=== PATIENT | male | born 1970 | race African-American/Black ===

== ENCOUNTER 2016-04-02 18:22 | Emergency (ER) | payer OTHER ==
[2016-04-02 18:51] VITALS: TEMP 97.7; BMI 20.3
[2016-04-02] MEDS ORDERED: FOLIC ACID INJECTION - 1 MG, THIAMINE HCL 100 MG, MULTIVIT INJECTION ADULT 10 ML in SOD... IVPB ONE (19:09)
--- NOTE | 2016-04-02 19:14 | PDOC ---
[id number] is a 46 year old male with a significant past medical history of alcohol and cannabis abuse, asthma, hypertension, pancytopenia, who presents to the emergency department for alcohol intoxication. The patient presented at [address] [place] [address] for alcohol detox. The patient was intoxicated and was noted to have fallen in the waiting room. Patient was alert and appeared intoxicated patient sent to ER. He denies chest pain, shortness of breath, headache and dizziness. He denies fever, chills, nausea, vomit, diarrhea and constipation. He denies dysuria, frequency, urgency and hematuria. Allergies: Penicillins PCP - N/A <Trinidad Little - Last Filed: 04/02/16 19:22> - General History Source: Patient, Old Records Exam Limitations: Intoxication <Link Calhoun - Last Filed: 04/08/16 09:23> - General Chief Complaint: Alcohol intoxication Stated Complaint: Alcohol intoxication Time Seen by Provider: 04/02/16 18:34 Past History <Trinidad Little - Last Filed: 04/02/16 19:22> - Past Medical History Anemia: No Asthma: No Cancer: No Cardiac Disorders: No CVA: No COPD: No CHF: No Dementia: No Diabetes: No GI Disorders: No Disorders: No HTN: Yes (NO MEDS,non compliance) Hypercholesterolemia: No Kidney Stones: No Liver Disease: No Suicide Attempt (Hx): No Seizures: Yes (12/01/2013 AND 12/07/13,08/24/14) Thyroid Disease: No - Surgical History Abdominal Surgery: No Appendectomy: No Cardiac Surgery: No Cholecystectomy: No Lung Surgery: No Neurologic Surgery: Yes Orthopedic Surgery: Yes (JAW SX WITH PLATES IN PLACE IN 1999) - Reproductive History Testicular Surgery: No - Psycho/Social/Smoking Cessation Hx Anxiety: No Suicidal Ideation: No Smoking History: Current every day smoker Have you smoked in the past 12 months: Yes Number of Cigarettes Smoked Daily: 5 Cigars Per Day: 0 Information on smoking cessation initiated: No 'Breaking Loose' booklet given: 04/02/16 Hx Alcohol Use: Yes Drug/Substance Use Hx: No Substance Use Type: Alcohol Hx Substance Use Treatment: Yes (12/11) <Link Calhoun - Last Filed: 04/08/16 09:23> - Past Medical History Allergies/Adverse Reactions: Allergies Allergy/AdvReac Type Severity Reaction Status Date / Time Penicillins Allergy Severe Difficulty Verified 08/24/14 22:10 Breathing Home Medications: Ambulatory Orders Amlodipine Besylate [Norvasc -] 5 mg PO DAILY #30 tablet 08/27/14 Ferrous Sulfate [Feosol] 325 mg PO TIDCM #90 ud 08/27/14 Hydrochlorothiazide [Hctz -] 25 mg PO DAILY #30 tablet 08/27/14 Levetiracetam [Keppra -] 500 mg PO BID #60 tablet 08/27/14 Lisinopril [Prinivil] 20 mg PO BID #60 tablet 08/27/14 Potassium Chloride [K-Dur -] 40 meq PO DAILY #7 tablet.er 08/27/14 Albuterol Sulfate Inhaler - [Ventolin Hfa Inhaler -] 1 - 2 inh PO QID PRN Review of Systems - Review of Systems Able to Perform ROS?: Yes Comments:: 04/02/16 19:22 GENERAL/CONSTITUTIONAL: No fever or chills. No weakness. HEAD, EYES, EARS, NOSE AND THROAT: No change in vision. No ear pain or discharge. No sore throat. CARDIOVASCULAR: No chest pain or shortness of breath. RESPIRATORY: No cough, wheezing, or hemoptysis. GASTROINTESTINAL: No nausea, vomiting, diarrhea or constipation. GENITOURINARY: No dysuria, frequency, or change in urination. MUSCULOSKELETAL: No joint or muscle swelling or pain. No neck or back pain. SKIN: No rash NEUROLOGIC: No headache, vertigo, loss of consciousness, or change in strength/ sensation. ENDOCRINE: No increased thirst. No abnormal weight change. HEMATOLOGIC/LYMPHATIC: No anemia, easy bleeding, or history of blood clots. ALLERGIC/IMMUNOLOGIC: No hives or skin allergy. <Trinidad Little - Last Filed: 04/02/16 19:22> *Physical Exam - Vital Signs Last Vital Signs Temp Pulse Resp BP Pulse Ox 97.7 F 104 H 20 135/100 96 04/02/16 18:33 04/02/16 18:33 04/02/16 18:33 04/02/16 18:33 04/02/16 18:33 - Physical Exam Comments: 04/02/16 19:23 GENERAL: (+) Alcohol on breath, Awake, alert, in no acute distress HEAD: No signs of trauma EYES: PERRLA, EOMI, sclera anicteric, conjunctiva clear ENT: Auricles normal inspection, hearing grossly normal, nares patent, oropharynx clear without exudates. Moist mucosa NECK: Normal ROM, supple, no lymphadenopathy, JVD, or masses LUNGS: Breath sounds equal, clear to auscultation bilaterally. No wheezes, and no crackles HEART: Regular rate and rhythm, normal S1 and S2, no murmurs, rubs or gallops ABDOMEN: Soft, nontender, normoactive bowel sounds. No guarding, no rebound. No masses EXTREMITIES: Normal range of motion, no edema. No clubbing or cyanosis. No cords, erythema, or tenderness NEUROLOGICAL: Cranial nerves II-XII intact. Normal speech, normal gait. Sensation intact in upper and lower extremities. 5/5 motor strength in upper and lower extremities. No pronator drift. Finger to nose intact. Rapid alternations intact. SKIN: Warm, Dry, normal turgor, no rashes or lesions noted. <Trinidad Little - Last Filed: 04/02/16 19:22> - Vital Signs Last Vital Signs Temp Pulse Resp BP Pulse Ox 97.7 F 104 H 20 135/100 96 04/02/16 18:33 04/02/16 18:33 04/02/16 18:33 04/02/16 18:33 04/02/16 18:33 <Link Calhoun - Last Filed: 04/08/16 09:23> ED Treatment Course - RADIOLOGY Radiology Studies Ordered: Category Date Time Status CERVICAL SPINE CT W/O CONTR [CT] Stat CT Scan 04/02/16 19:[address] WITHOUT CONTRAST [CT] Stat CT Scan 04/02/16 19:08 Ordered CHEST - PA [RAD] Stat Radiology 04/02/16 19:08 Ordered <Link Calhoun - Last Filed: 04/08/16 09:23> Medical Decision Making - Medical Decision Making 04/02/16 19:14 A portion of this note was documented by scribe services under my direction. I have reviewed the details of the note, within reason, and agree with the documentation with the following case summary and management plan written by me. Patient treated in the ED. Nursing notes are reviewed and incorporated into the medical decision-making. Vital signs reviewed. Peripheral IV access obtained by the nurse, laboratory studies are drawn and sent, reviewed and interpreted by myself. 46 year old male with past medical history of alcohol and cannabis abuse, asthma , hypertension, pancytopenia presents to the emergency department for intoxication. The patient presented at [address] [place] [address] for alcohol detox. The patient was intoxicated and was noted to have fallen the waiting room. He had a PAC of 0.330. Patient was alert and appeared intoxicated patient sent to ER. Patient will need a head CT and a cervical spine CT given the fall. Patient is obviously intoxicated. Will allow the alcohol to metabolize and send the patient back to [address] [place] [address] when sober for detox. 04/03/16 01:40 Chest xray reviewed. No acute findings. CT head and c-spine reviewed. No acute findings. Case signed out to oncoming ED physician Dr. Silver for further management and disposition. Once sober, pt can be d/c to [address] [place] [address]. <Link Calhoun - Last Filed: 04/08/16 09:23> *DC/Admit/Observation/Transfer - Attestations Scribe Attestion: 04/02/16 19:24 Documentation prepared by Trinidad Little, acting as electromedical equipment technician for Link Calhoun MD, MD <Trinidad Little - Last Filed: 04/02/16 19:22> <Link Calhoun - Last Filed: 04/08/16 09:23> Diagnosis at time of Disposition: Alcohol dependence - Discharge Dispostion Disposition: I.P. ALCOHOL/SUBS ABUSE REHAB Condition at time of disposition: Stable - Referrals Referrals: STAFF,NOT ON [Primary Care Provider] -
[2016-04-03 06:03] VITALS: BP 137/98; PULSE 93
--- NOTE | 2016-04-03 06:09 | PDOC ---
*Physical Exam - Vital Signs Last Vital Signs Temp Pulse Resp BP Pulse Ox 97.7 F 93 H 16 137/98 96 04/02/16 18:33 04/03/16 06:02 04/03/16 06:02 04/03/16 06:02 04/03/16 06:02 ED Treatment Course - Medications Given in the ED: ED Medications Discontinued Medications Generic Name Dose Route Start Last Admin Trade Name Freq PRN Reason Stop Dose Admin Folic Acid 1 mg/ Thiamine HCl 1,000 mls @ 125 mls/hr 04/02/16 19:09 04/02/16 23 :36 100 mg/ Multivitamins/Minerals IVPB 04/03/16 03:08 Not Given 10 ml/ Sodium Chloride ONCE ONE Medical Decision Making - Medical Decision Making 04/03/16 06:08 Pt accepted at [address] [place] [address] Alcohol Detox at 8 am *DC/Admit/Observation/Transfer Diagnosis at time of Disposition: Alcohol dependence - Discharge Dispostion Disposition: I.P. ALCOHOL/SUBS ABUSE REHAB Condition at time of disposition: Stable Admit: No - Referrals Referrals: STAFF,NOT ON [Primary Care Provider] - - Patient Instructions - Post Discharge Activity
== END 2016-04-03 06:29 | disposition home or self-care (01) ==
LOC: JER 18:22
DX: F10.220 Alcohol dependence with intoxication, uncomplicated (principal); F12.10 Cannabis abuse, uncomplicated; I10 Essential (primary) hypertension; J45.909 Unspecified asthma, uncomplicated; D61.818 Other pancytopenia; Z91.14 Patient's other noncompliance with medication regimen
CPT/HCPCS: 70450-TC; 71010-TC; 72125-TC; 99283-25

== ENCOUNTER 2016-04-03 08:47 | Inpatient (IN) | payer OTHER ==
[2016-04-03 08:54] VITALS: BMI 23.1
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
[2016-04-03] MEDS ORDERED: LOPERAMIDE HCL 2 MG CAPSULE PO PRN (11:54)
[2016-04-03] MEDS ORDERED: guaiFENesin/D-METHORPHAN HB 10 ML UNIT-DOSE CUPS PO PRN (11:54)
[2016-04-03] MEDS ORDERED: MAGNESIUM CITRATE 300 ML BOTTLE PO PRN (11:54)
[2016-04-03] MEDS ORDERED: hydrOXYzine PAMOATE 50 MG CAPSULE (FP) PO PRN (11:54)
[2016-04-03] MEDS ORDERED: MENTHOL/PHENOL 1 EACH UD MM PRN (11:54)
[2016-04-03] MEDS ORDERED: chlordiazePOXIDE HCL 25 MG CAPSULE PO PRN (11:54)
[2016-04-03] MEDS ORDERED: MAGNESIUM HYDROX 2400MG/30ML ORAL SUSPENSION 30 ML CUP PO PRN (11:54)
[2016-04-03] MEDS ORDERED: MAG HYDROX/AL HYDROX/SIMETH 30 ML UNIT-DOSE CUP PO PRN (11:54)
[2016-04-03] MEDS ORDERED: ACETAMINOPHEN 325 MG TABLET (FP) PO PRN (11:54)
[2016-04-03] MEDS ORDERED: P-EPHED 60MG/TRIPROLIDI 2.5MG TABLET PO PRN (11:54)
[2016-04-03] MEDS ORDERED: IBUPROFEN 400 MG TABLET (FP) PO PRN (11:54)
[2016-04-03] MEDS ORDERED: ALBUTEROL SO4 6.7 GM HFA INHALER IH PRN (11:59)
[2016-04-03] MEDS ORDERED: chlordiazePOXIDE HCL 25 MG CAPSULE PO ONE (12:29)
[2016-04-03] MEDS: FERROUS SO4 325 MG TABLET (FP) PO SCH ×2 (12:49→17:29)
[2016-04-03] MEDS: LISINOPRIL 20 MG TABLET (FP) PO SCH ×2 (12:49→22:25)
[2016-04-03] MEDS: amLODIPine BESYLATE 5 MG TABLET (FP) PO SCH (12:49)
[2016-04-03 17:27] LABS: URINE APPEARANCE CLEAR; URINE BILIRUBIN NEGATIVE (NEGATIVE); URINE COLOR AMBER; URINE GLUCOSE (UA) NEGATIVE (NEGATIVE); URINE KETONE 1+ (NEGATIVE); URINE LEUK ESTERASE NEGATIVE (NEGATIVE); URINE NITRITE NEGATIVE (NEGATIVE); URINE UROBILINOGEN 4.0 E.U/dl E.U./dl (0.2-1.0)
[2016-04-03 17:28] LABS: URINE BLOOD 1+ (NEGATIVE); URINE PROTEIN 2+ (NEGATIVE)
[2016-04-03] MEDS: chlordiazePOXIDE HCL 25 MG CAPSULE PO SCH ×2 (17:29→22:25)
[2016-04-03 17:44] LABS: URINE BACTERIA RARE /hpf (NONE SEEN); URINE HYALINE CAST 6 /lpf; URINE MUCUS MODERATE; URINE RBC 2 /hpf (0-3); URINE WBC 1 /hpf (3-5)
[2016-04-03] MEDS: THIAMINE HCL 100 MG TABLET (FP) PO SCH (22:24)
[2016-04-03] MEDS: levETIRAcetam 500 MG TABLET (FP) PO SCH (22:24)
[2016-04-03] MEDS: diphenhydrAMINE HCL 50 MG CAPSULE PO PRN (22:25)
[2016-04-04] MEDS: chlordiazePOXIDE HCL 25 MG CAPSULE PO SCH ×4 (06:05→22:21)
[2016-04-04] MEDS: FERROUS SO4 325 MG TABLET (FP) PO SCH ×3 (08:25→20:02)
[2016-04-04] MEDS: levETIRAcetam 500 MG TABLET (FP) PO SCH ×2 (10:38→22:21)
[2016-04-04] MEDS: HYDROCHLOROTHIAZIDE 25 MG TABLET (FP) PO SCH (10:39)
[2016-04-04] MEDS: PRENATAL VITAMINS W/ FOLIC ACID TABLET (FP) PO SCH (10:39)
[2016-04-04] MEDS: amLODIPine BESYLATE 5 MG TABLET (FP) PO SCH (10:39)
[2016-04-04] MEDS: LISINOPRIL 20 MG TABLET (FP) PO SCH ×2 (10:39→22:21)
[2016-04-04] MEDS: POTASSIUM CHLORIDE TABS 20 MEQ TABLET.ER (FP) PO SCH (10:39)
[2016-04-04 10:47] LABS: ALBUMIN 3.7 g/dl (3.4-5.0); ALK PHOS 104 U/L (45-117); ANION GAP 11 (8-16); BILIRUBIN,TOTAL 0.8 mg/dL (0.2-1.0); CO2 27 mmol/L (21-32); CREATININE 0.8 mg/dL (0.7-1.3); GLUCOSE,RANDOM 108 mg/dL (74-106); SGOT/AST 237 U/L (15-37); SGPT/ALT 122 U/L (12-78); TOT PROT 7.1 g/dl (6.4-8.2)
[2016-04-04 11:01] LABS: MCH 31.3 pg (25.7-33.7); MCHC 32.9 g/dl (32.0-35.9); MEAN PLT VOLUME 9.2 fl (7.5-11.1); PLATELET COUNT 158 K/MM3 (134-434); RDW 14.5 % (11.9-15.9); WHITE BLOOD COUNT 3.1 K/mm3 (4.0-10.0)
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
--- NOTE | 2016-04-04 15:11 | PN ---
S CIWA - CIWA Score Nausea/Vomitin Muscle Tremors: 5 Anxiety: 4-Mod. Anxious/Guarded Agitation: 4-Moderately Restless Paroxysmal Sweats: 3 Orientation: 0-Oriented Tacttile Disturbances: 2-Mild Itch/Numbness/Burn Auditory Disturbances: 0-None Visual Disturbances: 0-None Headache: 0-None Present CIWA-Ar Total Score: 20 BHS Progress Note (SOAP) Subjective: ANXIETY,TREMORS,SWEATING,INTERRUPTED SLEEP,RESTLESS. Objective: 04/04/16 15:09 Vital Signs - 8 hr 04/04/16 09:43 Temperature 98.9 F Pulse Rate 88 Respiratory 20 Rate Blood Pressure 139/97 Laboratory Tests 04/03/16 04/04/16 04/04/16 15:00 06:00 06:00 WBC 3.1 L D RBC 3.58 L Hgb 11.2 L Hct 34.0 L MCV 95.0 MCHC 32.9 RDW 14.5 Plt Count 158 D MPV 9.2 Sodium 140 Potassium 3.4 L Chloride 102 Carbon Dioxide 27 Anion Gap 11 BUN 9 Creatinine 0.8 Creat Clearance w eGFR > 60 Random Glucose 108 H Calcium 9.0 Total Bilirubin 0.8 D AST 237 H D ALT 122 H Alkaline Phosphatase 104 Total Protein 7.1 Albumin 3.7 Urine Color [place] Urine Appearance Clear Urine pH 5.0 D Ur Specific [place] 1.027 Urine Protein 2+ H Urine Glucose (UA) Negative Urine Ketones 1+ H Urine Blood 1+ H Urine Nitrite Negative Urine Bilirubin Negative Urine Urobilinogen 4.0 e.u/dl Ur Leukocyte Esterase Negative Urine RBC 2 Urine WBC 1 Ur Epithelial Cells Rare Urine Bacteria Rare Hyaline Casts 6 Urine Mucus Moderate RPR Titer 04/04/16 06:00 WBC RBC Hgb Hct MCV MCHC RDW Plt Count MPV Sodium Potassium Chloride Carbon Dioxide Anion Gap BUN Creatinine Creat Clearance w eGFR Random Glucose Calcium Total Bilirubin AST ALT Alkaline Phosphatase Total Protein Albumin Urine Color Urine Appearance Urine pH Ur Specific [place] Urine Protein Urine Glucose (UA) Urine Ketones Urine Blood Urine Nitrite Urine Bilirubin Urine Urobilinogen Ur Leukocyte Esterase Urine RBC Urine WBC Ur Epithelial Cells Urine Bacteria Hyaline Casts Urine Mucus RPR Titer Nonreactive LABS NOTED,K+ 3.4 K-DUR ORDERED.LIVER ENZYMES ELEVATED. Assessment: 04/04/16 15:11 WITHDRAWAL SX. Plan: CONTINUE DETOX
[2016-04-04] MEDS: NICOTINE POLACRILEX 2 MG GUM BUC PRN (17:06)
[2016-04-04] MEDS: THIAMINE HCL 100 MG TABLET (FP) PO SCH (22:21)
[2016-04-04] MEDS: diphenhydrAMINE HCL 50 MG CAPSULE PO PRN (22:22)
[2016-04-05] MEDS: chlordiazePOXIDE HCL 25 MG CAPSULE PO SCH ×2 (05:53→10:14)
[2016-04-05] MEDS: FERROUS SO4 325 MG TABLET (FP) PO SCH ×3 (09:05→17:19)
[2016-04-05] MEDS: PRENATAL VITAMINS W/ FOLIC ACID TABLET (FP) PO SCH (10:14)
[2016-04-05] MEDS: LISINOPRIL 20 MG TABLET (FP) PO SCH ×2 (10:14→23:03)
[2016-04-05] MEDS: HYDROCHLOROTHIAZIDE 25 MG TABLET (FP) PO SCH (10:14)
[2016-04-05] MEDS: POTASSIUM CHLORIDE TABS 20 MEQ TABLET.ER (FP) PO SCH (10:14)
[2016-04-05] MEDS: levETIRAcetam 500 MG TABLET (FP) PO SCH ×2 (10:14→23:03)
[2016-04-05] MEDS: amLODIPine BESYLATE 5 MG TABLET (FP) PO SCH (10:14)
[2016-04-05] MEDS: NICOTINE POLACRILEX 2 MG GUM BUC PRN (10:17)
[2016-04-05] MEDS: chlordiazePOXIDE 5 MG CAPSULE PO SCH ×2 (17:19→23:03)
--- NOTE | 2016-04-05 21:31 | PN ---
[id number] 4-Moderate,w/Arms Extend Anxiety: 4-Mod. Anxious/Guarded Agitation: 4-Moderately Restless Paroxysmal Sweats: 3 Orientation: 0-Oriented Tacttile Disturbances: 0-None Auditory Disturbances: 0-None Visual Disturbances: 0-None Headache: 0-None Present CIWA-Ar Total Score: 15 BHS Progress Note (SOAP) Subjective: ANXIETY,TREMORS,INTERRUPTED SLEEP,RESTLESS. PACING & WANTS TO LEAVE WITHOUT COMPLETING DETOX. Objective: 04/05/16 21:28 Vital Signs - 8 hr 04/05/16 04/05/16 14:57 20:13 Temperature 97 F L 97.7 F Pulse Rate 101 H 101 H Respiratory 19 16 Rate Blood Pressure 118/82 114/75 Assessment: 04/05/16 21:29 withdrawal sx Plan: CONTINUE DETOX
[2016-04-05] MEDS: THIAMINE HCL 100 MG TABLET (FP) PO SCH (23:02)
[2016-04-06] MEDS: chlordiazePOXIDE 5 MG CAPSULE PO SCH ×2 (05:28→10:17)
[2016-04-06] MEDS: FERROUS SO4 325 MG TABLET (FP) PO SCH ×2 (07:44→11:56)
[2016-04-06] MEDS: PRENATAL VITAMINS W/ FOLIC ACID TABLET (FP) PO SCH (10:17)
[2016-04-06] MEDS: POTASSIUM CHLORIDE TABS 20 MEQ TABLET.ER (FP) PO SCH (10:17)
[2016-04-06] MEDS: amLODIPine BESYLATE 5 MG TABLET (FP) PO SCH (10:17)
[2016-04-06] MEDS: LISINOPRIL 20 MG TABLET (FP) PO SCH (10:17)
[2016-04-06] MEDS: HYDROCHLOROTHIAZIDE 25 MG TABLET (FP) PO SCH (10:17)
[2016-04-06] MEDS: levETIRAcetam 500 MG TABLET (FP) PO SCH (10:17)
[2016-04-06] MEDS: NICOTINE POLACRILEX 2 MG GUM BUC PRN (10:19)
[2016-04-06 14:11] VITALS: BP 109/81; PULSE 107; TEMP 98
--- NOTE | 2016-04-06 15:03 | DS ---
[facility] Detox Discharge Summary Admission Date: 04/03/16 Discharge Date: 04/06/16 - History Present History: Alcohol Dependence, Cannabis Dependence Pertinent Past History: Asthma HTN - Physical Exam Results Vital Signs: Vital Signs Temperature 98 F 04/06/16 14:10 Pulse Rate 107 H 04/06/16 14:10 Respiratory Rate 20 04/06/16 14:10 Blood Pressure 109/81 04/06/16 14:10 O2 Sat by Pulse Oximetry (%) Pertinent Admission Physical Exam Findings: Withdrawal symptoms - Medication Discharge Medications: Ambulatory Orders Amlodipine Besylate [Norvasc -] 5 mg PO DAILY #30 tablet 08/27/14 Ferrous Sulfate [Feosol] 325 mg PO TIDCM #90 ud 08/27/14 Hydrochlorothiazide [Hctz -] 25 mg PO DAILY #30 tablet 08/27/14 Levetiracetam [Keppra -] 500 mg PO BID #60 tablet 08/27/14 Lisinopril [Prinivil] 20 mg PO BID #60 tablet 08/27/14 Potassium Chloride [K-Dur -] 40 meq PO DAILY #7 tablet.er 08/27/14 Albuterol Sulfate Inhaler - [Ventolin Hfa Inhaler -] 1 - 2 inh PO QID PRN - Diagnosis (1) Alcohol dependence with uncomplicated withdrawal Current Visit: Yes Status: Acute (2) Cannabis dependence Current Visit: Yes Status: Chronic (3) Asthma Current Visit: Yes Status: Chronic (4) Essential hypertension Current Visit: Yes Status: Chronic - AMA Did Patient Leave Against Medical Advice: Yes
[2016-04-06] MEDS ORDERED: chlordiazePOXIDE HCL 10 MG CAPSULE PO SCH (17:00)
--- NOTE | 2016-04-09 10:17 | EKG ---
Test Reason : Blood Pressure : / mmHG Vent. Rate : 089 BPM Atrial Rate : 089 BPM P-R Int : 142 ms QRS Dur : 088 ms QT Int : 402 ms P-R-T Axes : 063 051 -23 degrees QTc Int : 489 ms NORMAL SINUS RHYTHM MINIMAL VOLTAGE CRITERIA FOR LVH, MAY BE NORMAL VARIANT CANNOT RULE OUT ANTERIOR INFARCT , AGE UNDETERMINED ABNORMAL ECG NO PREVIOUS ECGS AVAILABLE Confirmed by CHERYL COPE, ALON ([id number]) on 04/09/2016 10:17:18 AM Referred By: Eduardo Galvan Confirmed By:ALON LUNA MD
== END 2016-04-06 15:24 | disposition left against medical advice (07) | DRG 770 ==
LOC: YASAS 08:47 → Y3N 12:08
PROVIDERS: ADMIT Internal Medicine; ATTEND Internal Medicine
PROC: HZ2ZZZZ Detoxification Services for Substance Abuse Treatment (ICD-10-PCS; principal; 2016-04-03)
DX: F10.230 Alcohol dependence with withdrawal, uncomplicated (principal); F12.20 Cannabis dependence, uncomplicated; F17.210 Nicotine dependence, cigarettes, uncomplicated; F19.282 Other psychoactive substance dependence with psychoactive substance-induced sleep disorder; I10 Essential (primary) hypertension; J45.909 Unspecified asthma, uncomplicated; G40.909 Epilepsy, unspecified, not intractable, without status epilepticus; H54.42 Blindness, left eye, normal vision right eye; R29.6 Repeated falls; R26.2 Difficulty in walking, not elsewhere classified; Z91.5 Personal history of self-harm; Z86.79 Personal history of other diseases of the circulatory system
CPT/HCPCS: 36415; 80053; 81003; 81015; 85027; 86593; 93005; 93010